=== PATIENT | female | born 1995 | race Caucasian/White ===

== ENCOUNTER 2018-08-09 11:06 | Emergency (ER) | payer OTHER ==
[~2018-08-09] VITALS: Ht 154.9 cm; Wt 108.9 kg
[2018-08-09 11:11] VITALS: BP 127/79
[2018-08-09] MEDS ORDERED: KEFLEX500 M1 PO (11:24)
== END 2018-08-09 11:33 | disposition home or self-care (01) ==
LOC: M.ERS 11:06
DX: J02.9 Acute pharyngitis, unspecified (principal); N63.20 Unspecified lump in the left breast, unspecified quadrant; F17.200 Nicotine dependence, unspecified, uncomplicated

== ENCOUNTER 2019-02-28 08:42 | Emergency (ER) | payer OTHER ==
[~2019-02-28] VITALS: Ht 162.6 cm; Wt 108.9 kg
[~2019-02-28 08:42] MED LIST: KEFLEX500 M1 PO
[2019-02-28 09:47] LABS: CALCIUM 9.3 mg/dL (8.5-10.1); POTASSIUM 4.3 mmol/L (3.5-5.1)
[2019-02-28 09:52] LABS: MONOTEST (MONOSPOT)* NEGATIVE (Negative)
[2019-02-28] MEDS ORDERED: ZOFRAN ODT4 MG DISSOLVE (10:11)
[2019-02-28 10:20] VITALS: BP 120/64
== END 2019-02-28 10:22 | disposition home or self-care (01) ==
LOC: M.ERS 08:42
PROVIDERS: Emergency Medicine Emergency Medical Services
DX: J06.9 Acute upper respiratory infection, unspecified (principal); F17.210 Nicotine dependence, cigarettes, uncomplicated

== ENCOUNTER 2019-04-26 18:27 | Emergency (ER) | payer OTHER ==
[~2019-04-26] VITALS: Ht 162.6 cm; Wt 104.3 kg
[~2019-04-26 18:27] MED LIST changes: +ZOFRAN ODT4 MG DISSOLVE
[2019-04-26 19:16] LABS: INFLUENZA A ANTIGEN Negative (Negative); INFLUENZA B ANTIGEN Negative (Negative)
[2019-04-26] MEDS ORDERED: AUGMENTIN 875-1 EACH PO (19:20)
[2019-04-26 19:34] VITALS: BP 121/77
== END 2019-04-26 19:35 | disposition home or self-care (01) ==
LOC: M.ERS 18:27
PROVIDERS: Nurse Practitioner Family
DX: J06.9 Acute upper respiratory infection, unspecified (principal); J02.9 Acute pharyngitis, unspecified; F17.210 Nicotine dependence, cigarettes, uncomplicated; F12.10 Cannabis abuse, uncomplicated

== ENCOUNTER 2019-12-20 09:07 | Emergency (ER) | payer OTHER ==
[~2019-12-20] VITALS: Ht 162.6 cm; Wt 104.3 kg
[~2019-12-20 09:07] MED LIST changes: +AUGMENTIN 875-1 EACH PO
[2019-12-20 09:43] LABS: ABSOLUTE BASOPHILS 0.2 thou/uL (0.0-0.2); ABSOLUTE EOSINOPHILS 0.3 thou/uL (0.0-0.7); ABSOLUTE LYMPHOCYTES 2.4 thou/uL (0.8-5.3); ABSOLUTE MONOCYTES 0.7 thou/uL (0.0-1.2); ABSOLUTE NEUTROPHILS 8.4 thou/uL (1.6-8.1); BASOPHILS 1.4 %; EOSINOPHILS 2.9 %; HEMATOCRIT 45.2 % (37.0-47.0); HEMOGLOBIN 15.9 gm/dL (12.0-15.0); LYMPHOCYTES 20.1 %; MCHC 35.2 g/dL (28.0-37.0); MCV 88.2 fL (80.0-100.0); MONOCYTES 5.6 %; MPV 8.6 fl. (7.2-11.1); NUCLEATED RBCS 0 /100WBC; PLATELET COUNT* 262 thou/uL (150-400); RBC 5.13 mil/uL (4.20-5.00); RDW-CV 13.8 % (10.5-14.5)
[2019-12-20 09:48] LABS: CALCIUM 8.6 mg/dL (8.5-10.1); CREATININE 1.1 mg/dL (0.6-1.3); POTASSIUM 4.3 mmol/L (3.5-5.1)
[2019-12-20 10:37] VITALS: BP 119/77
== END 2019-12-20 10:38 | disposition home or self-care (01) ==
LOC: M.ERS 09:07
PROVIDERS: Emergency Medicine Emergency Medical Services
DX: J02.9 Acute pharyngitis, unspecified (principal); F17.210 Nicotine dependence, cigarettes, uncomplicated

== ENCOUNTER 2020-04-13 06:21 | Emergency (ER) | payer OTHER ==
[~2020-04-13] VITALS: Ht 162.6 cm; Wt 127.0 kg
[2020-04-13 06:26] VITALS: BP 112/78
[2020-04-13] MEDS ORDERED: DOXYCYCLINE 10100 MG PO (06:50)
== END 2020-04-13 06:55 | disposition home or self-care (01) ==
LOC: M.ERS 06:21
DX: N61.1 Abscess of the breast and nipple (principal); F17.210 Nicotine dependence, cigarettes, uncomplicated

== ENCOUNTER 2021-05-16 10:57 | Emergency (ER) | payer OTHER ==
[~2021-05-16] VITALS: Ht 162.6 cm; Wt 117.9 kg
[~2021-05-16 10:57] MED LIST changes: +DOXYCYCLINE 10100 MG PO
[2021-05-16 12:26] LABS: INFLUENZA A ANTIGEN Negative (Negative); INFLUENZA B ANTIGEN Negative (Negative)
[2021-05-16 13:03] VITALS: BP 124/77
== END 2021-05-16 13:03 | disposition home or self-care (01) ==
LOC: M.ERS 10:57
PROVIDERS: Nurse Practitioner Family
DX: J98.8 Other specified respiratory disorders (principal); Z20.822 Contact with and (suspected) exposure to COVID-19; F17.210 Nicotine dependence, cigarettes, uncomplicated